=== PATIENT | female | born 1960 | race Caucasian/White ===

== ENCOUNTER → 2024-06-10 | Outpatient (CLI) | payer MEDICARE, SELFPAY ==
[2024-06-10 09:55] LABS: Glucose Estimated Average 114 mg/dL (80-131); Hemoglobin A1C 5.6 % Hgb (4.8-6.0)
[2024-06-10 10:03] LABS: Alanine Aminotransferase 28 U/L (10-49); Albumin, Serum 4.6 gm/dL (3.4-4.8); Albumin/Globulin Ratio 2.1 (1.2-2.2); Alkaline Phosphatase 63 U/L (46-116); Anion Gap 2 (7-16); Aspartate Amino Transferase 23 U/L (0-34); BUN/Creatinine Ratio 28 Ratio (12-20); Bilirubin,Total 0.3 mg/dL (0.3-1.2); Blood Urea Nitrogen 36 mg/dL (9-23); Calcium 10.4 mg/dL (8.3-10.6); Calcium (Corrected) 10.4 mg/dL (8.5-10.1); Carbon Dioxide 28.8 mMol/L (20.0-31.0); Chloride 107 mMol/L (98-107); Creatinine (Component) 1.3 mg/dL (0.6-1.3); Globulin 2.2 gm/dL (2.3-3.5); Glucose 95 mg/dL (74-106); Osmolality,Calculated 283 (275-295); Potassium 4.8 mMol/L (3.4-5.1); Sodium 138 mMol/L (136-145); Total Protein 6.8 gm/dL (5.7-8.2); eGFR 46 See Note
== END | disposition home or self-care (01) ==
PROVIDERS: PCP Family Medicine; Referring Provider Registered Nurse; Visit Provider Registered Nurse
DX: F33.1 Major depressive disorder, recurrent, moderate (principal); R73.01 Impaired fasting glucose
CPT/HCPCS: 36415; 80053; 83036

== ENCOUNTER → 2024-08-25 | Outpatient (CLI) | payer MEDICARE, SELFPAY ==
[2024-08-25 11:45] LABS: Basophils # (Auto) 0.1 Thou/mm3 (0.0-0.2); Basophils % (Auto) 1 % (0-2.5); Eosinophils % (Auto) 0 % (0-10); Hematocrit 37.5 % (36.0-46.0); Hemoglobin 12.5 g/dL (12.0-16.0); Immature Granulocytes % (Auto) 1 % (0-0); Immature Granulocytes Auto 0.04 Thou/mm3 (0.00-0.00); Lymphocytes # (Auto) 1.5 Thou/mm3 (1.0-4.8); Lymphocytes % (Auto) 18 % (10-50); Mean Corpuscular HGB Conc 33.3 g/dl (31.0-37.0); Mean Corpuscular Volume 87 fL (80-100); Monocytes # (Auto) 0.8 Thou/mm3 (0.0-0.8); Monocytes % (Auto) 9 % (0-12); Neutrophils % (Auto) 72 % (37-80); Nucleated Red Blood Cell % 0 /100 WBC (0); Platelet Count 405 Thou/mm3 (140-440); RDW Standard Deviation 44.8 fL (36.4-46.3); Red Blood Count 4.31 Miln/mm3 (4.00-5.20); White Blood Count 8.4 Thou/mm3 (3.6-11.0)
[2024-08-25 11:54] LABS: Glucose Estimated Average 123 mg/dL (80-131); Hemoglobin A1C 5.9 % Hgb (4.8-6.0)
--- NOTE | 2024-08-25 11:58 | EKG_ITS ---
[facility] Test Date: 2024-08-25 Pat Name: MAYRA CAMPOS Department: Room: - Gender: Female [employer]: TRAN : 1960 Requested By: Jordy Erazo Order Number: [id number] Reading MD: Jordy Erazo Measurements Intervals [place] Rate: 60 P: 41 DC: 177 QRS: 35 QRSD: 81 T: 36 QT: 424 QTc: 425 Interpretive Statements SINUS RHYTHM WITH SINUS ARRHYTHMIA POSSIBLE LEFT ATRIAL ENLARGEMENT Compared to ECG 10/23/2023 14:55:07 No significant changes /store/[id number].pdf
[2024-08-25 12:22] LABS: Alanine Aminotransferase 32 U/L (10-49); Albumin, Serum 4.5 gm/dL (3.4-4.8); Albumin/Globulin Ratio 2.3 (1.2-2.2); Alkaline Phosphatase 70 U/L (46-116); Anion Gap 5 (7-16); Aspartate Amino Transferase 31 U/L (0-34); BUN/Creatinine Ratio 24 Ratio (12-20); Bilirubin,Total 0.3 mg/dL (0.3-1.2); Blood Urea Nitrogen 34 mg/dL (9-23); Carbon Dioxide 29.3 mMol/L (20.0-31.0); Chloride 107 mMol/L (98-107); Creatinine (Component) 1.4 mg/dL (0.6-1.3); Glucose 100 mg/dL (74-106); Osmolality,Calculated 288 (275-295); Potassium 5.3 mMol/L (3.4-5.1); Sodium 141 mMol/L (136-145); Total Protein 6.5 gm/dL (5.7-8.2); eGFR 42 See Note
== END | disposition home or self-care (01) ==
LOC: COPL 10:57
PROVIDERS: PCP Registered Nurse; Referring Provider Orthopaedic Surgery; Visit Provider Orthopaedic Surgery
DX: Z01.818 Encounter for other preprocedural examination (principal); Z01.812 Encounter for preprocedural laboratory examination
CPT/HCPCS: 36415; 80053; 83036; 85025; 87081; 93005

== ENCOUNTER → 2024-12-30 | Outpatient (CLI) | payer MEDICARE, SELFPAY ==
--- NOTE | 2024-12-30 14:00 | XR_ITS ---
Examination: CT chest, without intravenous contrast. CT abdomen, without intravenous contrast. 2-D sagittal and coronal reconstructions. 3-D reconstructions. Date and time of exam:December 30, 2024 1324 hours INDICATIONS: Vomiting abdominal pain one year CTDI vol (mgy) 12.7 DLP (MGycm)710 Technique: Multiple CT images, 3.0 mm slice thickness, obtained chest, abdomen, pelvis, with the high-resolution 64 slice scanner.. Sagittal and coronal 2-D reconstructions are obtained. 3-D reconstructions Low dose protocols were performed. One or more of the following dose reduction techniques were used; automated exposure control, adjustment of the mA and/or KV according to patient size, use of iterative reconstruction technique. Findings: No thoracic aortic aneurysm dilatation Pulmonary artery segments are not enlarged Significant calcification left anterior descending coronary artery At least 8 subcentimeter pulmonary nodules throughout the lungs ranging in size from 2 to 4 mm Soft opacities in the right upper lobe image 107 which may represent an early pneumonia Diffuse fatty infiltration throughout the liver Contracted gallbladder Spleen not enlarged No pancreatic or adrenal mass Aortic calcification no aneurysmal dilatation No pericecal inflammatory change No bowel obstruction or diverticulitis Advanced degenerative disc disease L4-L5 and involving mid dorsal vertebral bodies IMPRESSION: Suspicious for early pneumonia right upper lobe At least 8 subcentimeter pulmonary nodules throughout the lungs, with this study is baseline recommend 6 month follow-up CT chest without contrast to document stability of these nodules
== END | disposition home or self-care (01) ==
LOC: CCTX 13:22
PROVIDERS: PCP Registered Nurse; Referring Provider Registered Nurse; Visit Provider Registered Nurse
DX: R91.8 Other nonspecific abnormal finding of lung field (principal)
CPT/HCPCS: 71250; 74150

== ENCOUNTER → 2025-01-12 | Outpatient (CLI) | payer MEDICARE, SELFPAY ==
--- NOTE | 2025-01-12 09:41 | XR_ITS ---
Examination: PA lateral chest 2 views TECHNIQUE: Upright PA lateral chest 2 views January 12, 2025 10:10 AM Comparison January 02, 2024 INDICATIONS: Hypertension COPD, history pneumonia, right upper lobe pneumonia on CT chest study December 30, 2024 FINDINGS: Normal heart size No current pneumonia Moderate thoracic spondylosis IMPRESSION: No current pneumonia
--- NOTE | 2025-01-12 09:45 | XR_ITS ---
Examination: Abdomen sonogram, Limited Date and time of exam: January 12, 2025 0946 hours INDICATIONS: Epigastric pain beginning 2 months ago Technique: Real-time ye scale transabdominal sonographic images of the upper abdomen obtained. Findings: Normal gallbladder. Normal common bile duct 0.3 cm. Pancreas obscured by bowel gas. Liver 13.9 cm fatty infiltration irregular contour Normal hepatopedal portal venous flow Patent IVC IMPRESSION: Normal gallbladder, normal common bile duct Suspect primary hepatocellular disease, no focal liver lesions
[2025-01-12 11:30] LABS: Basophils # (Auto) 0.1 Thou/mm3 (0.0-0.2); Basophils % (Auto) 1 % (0-2.5); Eosinophils # (Auto) 0.3 Thou/mm3 (0.0-0.5); Eosinophils % (Auto) 3 % (0-10); Hematocrit 38.3 % (36.0-46.0); Hemoglobin 13.0 g/dL (12.0-16.0); Immature Granulocytes Auto 0.03 Thou/mm3 (0.00-0.00); Lymphocytes # (Auto) 2.5 Thou/mm3 (1.0-4.8); Lymphocytes % (Auto) 26 % (10-50); Mean Corpuscular HGB Conc 33.9 g/dl (31.0-37.0); Mean Corpuscular Hemoglobin 28.4 pg (25.0-35.0); Mean Corpuscular Volume 84 fL (80-100); Monocytes # (Auto) 1.1 Thou/mm3 (0.0-0.8); Monocytes % (Auto) 11 % (0-12); Neutrophils # (Auto) 5.9 Thou/mm3 (1.8-7.7); Neutrophils % (Auto) 59 % (37-80); Nucleated Red Blood Cell # 0.00 Thou/mm3 (0.00-0.00); Nucleated Red Blood Cell % 0 /100 WBC (0); Platelet Count 433 Thou/mm3 (140-440); RDW Standard Deviation 46.4 fL (36.4-46.3); Red Blood Count 4.58 Miln/mm3 (4.00-5.20); White Blood Count 9.9 Thou/mm3 (3.6-11.0)
[2025-01-12 11:52] LABS: Alanine Aminotransferase 18 U/L (10-49); Albumin, Serum 4.7 gm/dL (3.4-4.8); Albumin/Globulin Ratio 1.9 (1.2-2.2); Alkaline Phosphatase 66 U/L (46-116); Anion Gap 3 (7-16); Aspartate Amino Transferase 27 U/L (0-34); BUN/Creatinine Ratio 16 Ratio (12-20); Bilirubin,Total 0.3 mg/dL (0.3-1.2); Blood Urea Nitrogen 23 mg/dL (9-23); Calcium 10.0 mg/dL (8.3-10.6); Calcium (Corrected) 10.0 mg/dL (8.5-10.1); Carbon Dioxide 31.1 mMol/L (20.0-31.0); Chloride 106 mMol/L (98-107); Creatinine (Component) 1.4 mg/dL (0.6-1.3); Globulin 2.5 gm/dL (2.3-3.5); Glucose 90 mg/dL (74-106); Osmolality,Calculated 283 (275-295); Potassium 5.1 mMol/L (3.4-5.1); Sodium 140 mMol/L (136-145); Total Protein 7.2 gm/dL (5.7-8.2); eGFR 42 See Note
== END | disposition home or self-care (01) ==
LOC: CDIM 09:31
PROVIDERS: PCP Family Medicine; Referring Provider Specialist; Visit Provider Specialist
DX: R10.13 Epigastric pain (principal); J44.9 Chronic obstructive pulmonary disease, unspecified; J18.9 Pneumonia, unspecified organism
CPT/HCPCS: 36415; 71046; 76705; 80053; 85025

== ENCOUNTER 2025-02-15 08:00 | Day surgery (SDC) | payer MEDICARE, SELFPAY ==
--- NOTE | 2025-02-12 06:00 | EKG_ITS ---
[facility] Test Date: 2025-02-12 Pat Name: MAYRA CAMPOS Department: Room: - Gender: Female Order Entry Technician: RAMAKRISHNA CARLSONB: 1960 Requested By: Mina Moreno Order Number: [id number] Reading MD: Mina Moreno Measurements Intervals [place] Rate: 79 P: 56 GA: 173 QRS: 52 QRSD: 82 T: 46 QT: 369 QTc: 423 Interpretive Statements SINUS RHYTHM POSSIBLE LEFT ATRIAL ENLARGEMENT [-0.1mV P WAVE IN V1/V2] Compared to ECG 08/25/2024 11:58:15 Sinus arrhythmia no longer present /store/S0/[id number].pdf
[2025-02-12 12:16] LABS: Alanine Aminotransferase 22 U/L (10-49); Albumin, Serum 4.5 gm/dL (3.4-4.8); Albumin/Globulin Ratio 1.9 (1.2-2.2); Alkaline Phosphatase 72 U/L (46-116); Anion Gap 6 (7-16); Aspartate Amino Transferase 23 U/L (0-34); BUN/Creatinine Ratio 14 Ratio (12-20); Bilirubin,Total 0.3 mg/dL (0.3-1.2); Blood Urea Nitrogen 20 mg/dL (9-23); Calcium 9.4 mg/dL (8.3-10.6); Calcium (Corrected) 9.4 mg/dL (8.5-10.1); Carbon Dioxide 29.5 mMol/L (20.0-31.0); Chloride 105 mMol/L (98-107); Creatinine (Component) 1.4 mg/dL (0.6-1.3); Globulin 2.4 gm/dL (2.3-3.5); Glucose 119 mg/dL (74-106); Osmolality,Calculated 283 (275-295); Potassium 4.6 mMol/L (3.4-5.1); Sodium 140 mMol/L (136-145); Total Protein 6.9 gm/dL (5.7-8.2); eGFR 42 See Note
[2025-02-12 14:07] VITALS: BMI 32.5
[2025-02-15] VITALS (8 sets, daily range): BP systolic 105–210; BP diastolic 46–105; PULSE 69–96; RESP 12–21; TEMP 36.6–37.1; O2SAT 94–100; BMI 32.5
[2025-02-15] MEDS: ALBUTEROL RT 2.5 MG/0.5 ML NEBU INH (08:40)
[2025-02-15] MEDS: SODIUM CHLORIDE RT SOL 0.9% 3 ML NEBU INH (08:40)
[2025-02-15] MEDS: RINGERS LACTATED 1000 ML 1,000 ML 20 ML IV (09:43)
== END 2025-02-15 10:36 | disposition home or self-care (01) ==
PROVIDERS: Anesthesiology; PCP Family Medicine; Referring Provider Specialist; Visit Provider Specialist
PROC: (CPT 43239; principal; 2025-02-15 09:30)
DX: K29.50 Unspecified chronic gastritis without bleeding (principal); K20.90 Esophagitis, unspecified without bleeding; K31.89 Other diseases of stomach and duodenum; Z01.810 Encounter for preprocedural cardiovascular examination; I10 Essential (primary) hypertension
CPT/HCPCS: 43239; 36415; 80053; 93005; J7120

== ENCOUNTER → 2025-03-22 | Outpatient (CLI) | payer MEDICARE, SELFPAY ==
--- NOTE | 2025-03-22 08:45 | XR_ITS ---
Examination: Screening digital mammography, bilateral Computer aided detection 3-D breast Tomosynthesis, bilateral Date and time of exam: March 22, 2025 0848 hours, compared to mammograms dating to February 17, 2019 Indication: Screening Technique: Nonmagnified MLO, CC views of the breasts to been obtained, reconstructed from 3-D Tomosynthesis images. R2 computer aided detection program utilized for evaluation of suspicious masses and/or abnormal calcifications. 3-D Tomosynthesis images obtained. Findings: Scattered areas of fibroglandular density. Benign calcifications. No interval suspicious masses Impression: BI-RADS category II: Benign Findings. Recommend 1 year follow-up mammogram.
== END | disposition home or self-care (01) ==
LOC: CDIM 08:32
PROVIDERS: PCP Registered Nurse; Referring Provider Registered Nurse; Visit Provider Registered Nurse
DX: Z12.31 Encounter for screening mammogram for malignant neoplasm of breast (principal); R92.323 Mammographic fibroglandular density, bilateral breasts; R92.1 Mammographic calcification found on diagnostic imaging of breast
CPT/HCPCS: 77063; 77067

== ENCOUNTER → 2025-03-30 | Outpatient (CLI) | payer MEDICARE, SELFPAY ==
--- NOTE | 2025-03-30 13:00 | XR_ITS ---
Examination: Retroperitoneal ultrasound, complete Technique: Multiple high resolution grayscale images of the retroperitoneum obtained, including kidneys and bladder. Exam date and time:March 30, 2025 1304 hours INDICATIONS: Chronic kidney disease stage III diagnosis incontinence 10 years, elevated creatinine on laboratory examination February 12, 2025 FINDINGS: Right kidney 10.0 cm cortex 2.0 cm Left kidney 9.7 cm cortex 1.5 cm Moderate bilateral renal scar formation Lower pole left renal cyst 21 mm No bladder mass or bladder calculi Bladder prevoid volume 148 cc IMPRESSION: Moderate bilateral renal parenchymal scar formation
== END | disposition home or self-care (01) ==
LOC: CDIM 12:32
PROVIDERS: PCP Family Medicine; Referring Provider Registered Nurse; Visit Provider Registered Nurse
DX: N28.89 Other specified disorders of kidney and ureter (principal)
CPT/HCPCS: 76770

== ENCOUNTER → 2025-05-03 | Outpatient (CLI) | payer MEDICARE, SELFPAY ==
[2025-05-03 15:59] LABS: Collection Type, Urine Clean Catch
[2025-05-03 17:04] LABS: Basophils # (Auto) 0.1 Thou/mm3 (0.0-0.2); Basophils % (Auto) 0 % (0-2.5); Eosinophils # (Auto) 0.1 Thou/mm3 (0.0-0.5); Eosinophils % (Auto) 1 % (0-10); Hematocrit 36.1 % (36.0-46.0); Hemoglobin 12.3 g/dL (12.0-16.0); Immature Granulocytes Auto 0.03 Thou/mm3 (0.00-0.00); Lymphocytes # (Auto) 2.4 Thou/mm3 (1.0-4.8); Lymphocytes % (Auto) 20 % (10-50); Mean Corpuscular HGB Conc 34.1 g/dl (31.0-37.0); Mean Corpuscular Hemoglobin 28.9 pg (25.0-35.0); Mean Corpuscular Volume 85 fL (80-100); Monocytes # (Auto) 1.3 Thou/mm3 (0.0-0.8); Monocytes % (Auto) 10 % (0-12); Neutrophils # (Auto) 8.3 Thou/mm3 (1.8-7.7); Neutrophils % (Auto) 68 % (37-80); Nucleated Red Blood Cell # 0.00 Thou/mm3 (0.00-0.00); Nucleated Red Blood Cell % 0 /100 WBC (0); Platelet Count 433 Thou/mm3 (140-440); RDW Standard Deviation 42.4 fL (36.4-46.3); Red Blood Count 4.25 Miln/mm3 (4.00-5.20); White Blood Count 12.2 Thou/mm3 (3.6-11.0)
[2025-05-03 17:15] LABS: Bilirubin,Urine Negative (Negative); Blood,Urine Negative (Negative); Clarity,Urine Clear (Clear/Hazy); Color,Urine Lt-Yellow (Lt Yel-Yel); Glucose, Urine Negative (Negative); Ketones,Urine Negative (Negative); Leukocyte Esterase,Urine Negative (Negative); Nitrite,Urine Negative (Negative); PH,Urine 6.0 (5.0-7.0); Protein,Urine Negative (Neg - Trace); RBC,Urine 2 /hpf (0-3); Specific Gravity,Urine 1.012 (1.001-1.035); Squamous Epithelial Cell,Urine 1 /hpf (0-5); Urobilinogen,Urine Negative mg/dL (0.0-1.0); WBC,Urine 2 /hpf (0-5)
[2025-05-03 17:20] LABS: Parathyroid Hormone Intact 47.8 pg/ml (18.5-88.0); Vitamin D 25 Hydroxy Total 18.6 ng/mL (7.3-40.2)
[2025-05-03 17:23] LABS: Albumin, Serum 4.6 gm/dL (3.4-4.8); Anion Gap 11 (7-16); BUN/Creatinine Ratio 10 Ratio (12-20); Blood Urea Nitrogen 14 mg/dL (9-23); Calcium 9.7 mg/dL (8.3-10.6); Calcium (Corrected) 9.7 mg/dL (8.5-10.1); Carbon Dioxide 32.2 mMol/L (20.0-31.0); Chloride 95 mMol/L (98-107); Creatinine (Component) 1.4 mg/dL (0.6-1.3); Glucose 155 mg/dL (74-106); Osmolality,Calculated 279 (275-295); Phosphorous 2.7 mg/dL (2.4-5.1); Potassium 3.4 mMol/L (3.4-5.1); Sodium 138 mMol/L (136-145); eGFR 41 See Note
[2025-05-03 17:29] LABS: Creatinine MALB Rnd Ur 96 mg/dL (30-125); Microalbumin Creat Ratio 22 mg/gCrea (<30); Microalbumin, Random Urine 21 mg/L (0-300)
== END | disposition home or self-care (01) ==
PROVIDERS: PCP Family Medicine; Referring Provider Internal Medicine; Visit Provider Internal Medicine
DX: I12.9 Hypertensive chronic kidney disease with stage 1 through stage 4 chronic kidney disease, or unspecified chronic kidney disease (principal); N18.32 Chronic kidney disease, stage 3b; E78.5 Hyperlipidemia, unspecified
CPT/HCPCS: 36415; 80069; 81001; 82043; 82306; 82570; 83970; 85025

== ENCOUNTER → 2025-06-22 | Outpatient (CLI) | payer MEDICARE, SELFPAY ==
--- NOTE | 2025-06-22 13:30 | XR_ITS ---
Examination: CT chest, without intravenous contrast. Sagittal and coronal 2-D reconstructions. Exam date and time: June 22, 2025, 1307 hours INDICATIONS: Pulmonary nodules on CT chest December 30, 2024 CTDI:vol (mGy) 16 DLP: (mGycm) 605 Technique: Multiple 3.0 mm axial sections of the chest to been obtained. Bone and lung density settings are obtained. Sagittal and coronal 2-D reconstructions have been obtained. Low dose protocols were performed. One or more of the following dose reduction techniques were used; automated exposure control, adjustment of the mA and/or KV according to patient size, use of iterative reconstruction technique. Findings: No thoracic aortic aneurysmal dilatation, no enlargement of the pulmonary artery segments Heavy calcification left anterior descending left circumflex right coronary arteries No mediastinal lymphadenopathy Stable bilateral pulmonary nodules No new pulmonary nodules No pneumonia or pulmonary edema Fatty infiltration throughout the liver Splenic calcifications Contracted gallbladder No pancreatic mass Mild nodular thickening left adrenal gland Moderate renal scar formation Moderate thoracic spondylosis IMPRESSION: Stable bilateral pulmonary nodules Mild infiltration throughout the liver Moderate renal scar formation
== END | disposition home or self-care (01) ==
LOC: CCTX 12:55
PROVIDERS: PCP Family Medicine; Referring Provider Registered Nurse; Visit Provider Registered Nurse
DX: R91.8 Other nonspecific abnormal finding of lung field (principal); K76.89 Other specified diseases of liver; N28.89 Other specified disorders of kidney and ureter
CPT/HCPCS: 71250